=== PATIENT | female | born 1955 | race Caucasian/White ===

== ENCOUNTER 2019-06-04 20:03 | Emergency (ER) | payer OTHER ==
[2019-06-04 20:22] VITALS: BP 164/98; PULSE 63; TEMP 97.8; BMI 26.6
[2019-06-04] MEDS ORDERED: SODIUM CHLORIDE 1,000 ML IV STA (21:23)
[2019-06-04] MEDS ORDERED: ONDANSETRON 4 MG/2 ML VIAL IVPUSH ONE (21:23)
[2019-06-04] MEDS ORDERED: KETOROLAC TROMETHAMINE 30 MG/1 ML VIAL IVPUSH ONE (21:23)
[2019-06-04] MEDS ORDERED: KETOROLAC TROMETHAMINE 30 MG/1 ML VIAL ONE (21:30)
[2019-06-04] MEDS ORDERED: ONDANSETRON 4 MG/2 ML VIAL ONE (21:30)
[2019-06-04] MEDS ORDERED: METOCLOPRAMIDE HCL INJECTION 10 MG/2 ML VIAL IVPB ONE (23:02)
[2019-06-04] MEDS ORDERED: METOCLOPRAMIDE HCL INJECTION 10 MG/2 ML VIAL ONE (23:18)
[2019-06-05] MEDS ORDERED: ACETAMINOPHEN 1000 MG/100 ML VIAL (NON FORMULARY) IVPB ONE (00:26)
[2019-06-05] MEDS ORDERED: ACETAMINOPHEN INJECTION 100 ML IVPB ONE (00:29)
--- NOTE | 2019-06-05 02:19 | PDOC ---
Documentation entered by Paula Godoy SCRIBE, acting as scribe for Ximena Crandall MD. Ximena Crandall MD: This documentation has been prepared by the glennyeWalt Aiswarya, SCRIBE, under my direction and personally reviewed by me in its entirety. I confirm that the documentation accurately reflects all work, treatment, procedures, and medical decision making performed by me. History of Present Illness - General Chief Complaint: Migraine Headache Stated Complaint: MIGRAINE Time Seen by Provider: 06/04/19 20:15 History Source: Patient Exam Limitations: No Limitations - History of Present Illness Initial Comments: 06/04/19 21:49 The patient is a 64 year old female, with a significant PMH of IBS, HTN and hypothyroidism, who presents to the emergency department with a migraine that began this morning. The patient states she endorses associated symptoms of decreased appetite, cold sweats, nausea, dehydrated and vomiting. Patient states migraine is exacerbated with flashing light and alleviated when eyes are closed. The patient denies chest pain, shortness of breath and vision changes. Denies fever, chills, diarrhea and constipation. Allergies: procaine HCL Past surgical history: appendectomy, right knee arthroscopy 2012 and right carpal tunnel Social history: Drinks 3 glasses of wine per night. PCP: Angeles Buenrostro Past History - Past Medical History Allergies/Adverse Reactions: Allergies Allergy/AdvReac Type Severity Reaction Status Date / Time procaine HCl [From Novocain] AdvReac Intermediate HEART RACES Verified 06/04/19 20:04 Home Medications: Ambulatory Orders Candesartan Cilexetil [Atacand] 8 mg PO DAILY 04/24/12 Hydrochlorothiazide [Hctz] 12.5 mg PO DAILY 04/24/12 Levothyroxine [Synthroid -] 137 mcg PO DAILY 04/24/12 Acetaminophen [Tylenol] 650 mg PO DAILY PRN 03/09/14 Triamcinolone 55Mcg [place] - [Nasacort Aq Nasal [place] -] 2 spray NS DAILY PRN Linaclotide [Linzess] 290 mcg PO DAILY 06/04/19 Anemia: No Asthma: No Cancer: No Cardiac Disorders: Yes ("FUNCTIONAL HEART MURMUR") CVA: No COPD: No CHF: No Dementia: No Diabetes: No GI Disorders: Yes (SLIGHT IBS) Disorders: No HTN: Yes Hypercholesterolemia: No Liver Disease: No Seizures: No Thyroid Disease: Yes (HYPOTHYROID) Other medical history: MIGRAINES - Surgical History Abdominal Surgery: No Appendectomy: Yes Cardiac Surgery: No Cholecystectomy: No Lung Surgery: No Neurologic Surgery: No Orthopedic Surgery: Yes (RIGHT KNEE ARTHROSCOPY 2011,RIGHT AHND CARPAL TUNNEL) - Immunization History Td Vaccination: Yes Immunization Up to Date: Yes - Psycho Social/Smoking Cessation Hx Smoking Status: Yes Smoking History: Former smoker Have you smoked in the past 12 months: No Number of Cigarettes Smoked Daily: 0 If you are a former smoker, when did you quit?: 1995 Information on smoking cessation initiated: No Hx Alcohol Use: Yes (3 GLASSES WINE /NIGHT) Drug/Substance Use Hx: No Substance Use Type: Alcohol Hx Substance Use Treatment: No Review of Systems - Review of Systems Able to Perform ROS?: Yes Comments:: 06/04/19 21:33 ADULT ROS GENERAL/CONSTITUTIONAL: No fever or chills. No weakness. HEAD, EYES, EARS, NOSE AND THROAT: No change in vision. No ear pain or discharge. No sore throat. CARDIOVASCULAR: No chest pain or shortness of breath. RESPIRATORY: No cough, wheezing, or hemoptysis. GASTROINTESTINAL: +nausea +vomiting. No diarrhea or constipation. GENITOURINARY: No dysuria, frequency, or change in urination. MUSCULOSKELETAL: No joint or muscle swelling or pain. No neck or back pain. SKIN: No rash NEUROLOGIC: +headache. +Vertigo. No loss of consciousness, or change in strength /sensation. ENDOCRINE: No increased thirst. No abnormal weight change. HEMATOLOGIC/LYMPHATIC: No anemia, easy bleeding, or history of blood clots. ALLERGIC/IMMUNOLOGIC: No hives or skin allergy. *Physical Exam - Vital Signs Last Vital Signs Temp Pulse Resp BP Pulse Ox 97.8 F 63 18 164/98 100 06/04/19 20:04 06/04/19 20:04 06/04/19 20:04 06/04/19 20:04 06/04/19 20:04 - Physical Exam 06/04/19 21:33 GENERAL: Awake, alert, and fully oriented, in no acute distress HEAD: No signs of trauma EYES: PERRLA, EOMI, sclera anicteric, conjunctiva clear ENT: +dry mucous membranes. Auricles normal inspection, hearing grossly normal, nares patent, oropharynx clear without exudates. NECK: Normal ROM, supple, no lymphadenopathy, JVD, or masses EXTREMITIES: Normal range of motion, no edema. No clubbing or cyanosis. No cords, erythema, or tenderness NEUROLOGICAL: Cranial nerves II through XII grossly intact. Normal speech, normal gait SKIN: Warm, Dry, normal turgor, no rashes or lesions noted. ED Treatment Course - Medications Given in the ED: ED Medications Discontinued Medications Generic Name Dose Route Start Last Admin Trade Name Ashley PRN Reason Stop Dose Admin Acetaminophen 1,000 mg 06/05/19 00:26 06/05/19 00:28 Ofirmev Injection - IVPB 06/05/19 00:27 1,000 mg ONCE ONE Administration Sodium Chloride 1,000 mls @ 1,000 mls/hr 06/04/19 21:23 06/04/19 21:39 Normal Saline - IV 06/04/19 22:22 1,000 mls/hr ASDIR STA Administration Ketorolac Tromethamine 30 mg 06/04/19 21:23 06/04/19 21:39 Toradol Injection - IVPUSH 06/04/19 21:24 30 mg ONCE ONE Administration Metoclopramide HCl 10 mg 06/04/19 23:02 06/04/19 23:04 Reglan Injection - IVPB 06/04/19 23:03 10 mg ONCE ONE Administration Ondansetron HCl 4 mg 06/04/19 21:23 06/04/19 21:40 Zofran Injection IVPUSH 06/04/19 21:24 4 mg ONCE ONE Administration ED Progress Note - Progress Note Progress Note: As noted above, 64-year-old woman with a history of migraine, especially in the past (prior to age 56 or so) presents with 1 day history of headache typical of her usual migraine pattern. Patient states that she had taken ibuprofen at home without relief; she no longer has migraine specific medication since her migraines are very rare now. Exam as noted. Because patient states that Toradol had been effective for her in the recent past episodes, IV access was obtained and Toradol 30 mg IV as well 4 mg Zofran IV administered. 1 L of normal saline also given for hydration Patient complained of persistent nausea and some persistent headache after above medications, Reglan 10 mg IV administered. This was followed by acetaminophen 1 g IV. After above medications, patient felt significantly better without persistent nausea or headache and was discharged home. She was given referral information for neurologist on-call (Dr. Steiner) if headache is persisting or she develops recurrent episodes of migraine headache. She should return to the ER if she has severe headache or develops vomiting/ fever Discharge - Discharge Information Problems reviewed: Yes Clinical Impression/Diagnosis: Migraine Qualifiers: Migraine type: other Status migrainosus presence: without status migrainosus Intractability: not intractable Qualified Code(s): G43.809 - Other migraine, not intractable, without status migrainosus Condition: Improved Disposition: HOME - Follow up/Referral Referrals: Angeles Buenrostro MD [Primary Care Provider] - Raúl Steiner MD [Staff Physician] - - Patient Discharge Instructions Patient Printed Discharge Instructions: Migraine -- Adult Additional Instructions: Rest; drink plenty of fluids Follow-up with your generaldoctor in the next 48 hours Return to ER if you have persistent severe pain or vomiting Consult with neurologist (Dr. Steiner) within the next 5 days[call office in AM to arrange appointment] - Post Discharge Activity
== END 2019-06-05 01:46 | disposition home or self-care (01) ==
LOC: FER 20:03
PROC: 3E033NZ Introduction of Analgesics, Hypnotics, Sedatives into Peripheral Vein, Percutaneous Approach (ICD-10-PCS; principal; 2019-06-04)
PROC: 3E0333Z Introduction of Anti-inflammatory into Peripheral Vein, Percutaneous Approach (ICD-10-PCS; 2019-06-04)
PROC: 3E033GC Introduction of Other Therapeutic Substance into Peripheral Vein, Percutaneous Approach (ICD-10-PCS; 2019-06-04)
DX: G43.809 Other migraine, not intractable, without status migrainosus (principal)
CPT/HCPCS: 99282-25; J0131; J7030